=== PATIENT | female | born 1995 | race Two or more races ===

== ENCOUNTER 2024-02-10 12:25 | Emergency (ER) | payer MEDICAID ==
[~2024-02-10 12:25] MED LIST: NITR-87 PO; ZOFR4T PO
[2024-02-10 13:27] LABS: Basophils # (auto) 0 10 ^3/uL (0-0.2); Basophils % (auto) 0.1 % (0.0-2.0); Eosinophils # (auto) 0 10 ^3/uL (0-0.8); Eosinophils % (auto) 0.2 % (0.0-7.0); Hematocrit 34.6 % (36.0-46.0); Hemoglobin 11.9 g/dL (12.2-16.2); Lymphocytes # (auto) 0.6 10 ^3/uL (0.4-5.4); Lymphocytes % (auto) 6.2 % (10.0-50.0); Mean Corpuscular Hgb Conc. 34.6 g/dL (32.0-36.0); Mean Corpuscular Volume 89.7 fL (80.0-100.0); Monocytes # (auto) 0.3 10 ^3/uL (0-1.3); Monocytes % (auto) 3.1 % (0.0-12.0); Neutrophils # (auto) 8.2 10 ^3/uL (1.6-8.6); Neutrophils % (auto) 90.4 % (37.0-80.0); Red Blood Cells 3.85 10^6/uL (4.0-5.20); Red Cell Distribution Width 13.5 % (11.8-14.3); White Blood Cell 9.1 10^3/uL (4.4-10.8)
[2024-02-10 13:43] LABS: Amphetamine Screen, Urine Neg (NEGATIVE)
[2024-02-10 13:44] LABS: Barbiturate Scree,Urine Neg (NEGATIVE); Benzodiazephine Screen, Urine Neg (NEGATIVE); Cannabinoid Screen, Urine Neg (NEGATIVE); Cocaine Screen, Urine Neg (NEGATIVE); Opiate Scree,Urine Neg (NEGATIVE); Phencyclidine Screen, Urine Neg (NEGATIVE); Urine Bacteria FEW /hpf (None Seen); Urine Blood Negative /uL (Negative); Urine Clarity Turbid (Clear); Urine Color Yellow (Yellow); Urine Mucus FEW (None Seen); Urine Protein, UAD TRACE (Negative); Urine Specific Gravity 1.032 (1.001-1.035); Urine Urobilinogen Normal (Negative); Urine WBC 16 /hpf (0 - 5)
[2024-02-10 13:49] LABS: Alanine Aminotransferase 31 U/L (7-40); Albumin 4.1 g/dL (3.2-4.8); Alkaline Phosphatase 87 U/L (46-116); Anion Gap 11 (5-15); Aspartate Aminotransferase 18 U/L (13-40); BUN/Creatinine Ratio 17.9 (10.0-20.0); Blood Urea Nitrogen 10 mg/dL (9-23); Calcium 9.2 mg/dL (8.7-10.4); Carbon Dioxide 19 mmol/L (20-30); Chloride 103 mmol/L (98-107); Glucose 98 mg/dL (74-106); Lipase 44 U/L (12-53); Potassium 4.2 mmol/L (3.5-5.1); Sodium 133 mmol/L (136-145)
[2024-02-10 13:50] LABS: Bilirubin, Total 0.5 mg/dL (0.2-1.0); Total Protein 7.2 g/dL (5.7-8.2)
[2024-02-10 13:54] LABS: INR 0.97 (0.9-1.15); Partial Thromboplastin Time 26.1 SEC (24.5-34.5); Prothrombin Time 10.3 sec (9.3-11.8)
[2024-02-10] MEDS ORDERED: CEPH500T PO (15:40)
[2024-02-10] MEDS ORDERED: ZOFR4T PO (15:40)
[2024-02-10] MEDS: ONDANSETRON HCL 4 MG/2 ML VIAL IV ONE (16:28)
[2024-02-10] MEDS: SODIUM CHLORIDE 0.9% 1,000 ML IVB ONE (16:28)
[2024-02-10 16:29] VITALS: BP 105/69; PULSE 91; RESP 20; TEMP 99; O2SAT 99
== END 2024-02-10 16:30 | disposition home or self-care (01) ==
LOC: ER 12:25
DX: O23.42 Unspecified infection of urinary tract in pregnancy, second trimester (principal); R10.2 Pelvic and perineal pain; N39.0 Urinary tract infection, site not specified; Z3A.21 21 weeks gestation of pregnancy
CPT/HCPCS: 36415; 76805; 80053; 80307; 81001; 83690; 84702; 85025; 85610; 85730

== ENCOUNTER 2024-04-26 07:35 | Observation (INO) | payer MEDICAID ==
[~2024-04-26] VITALS: Ht 157.5 cm; Wt 52.2 kg
[~2024-04-26 07:35] MED LIST changes: +CEPH500T PO
[2024-04-26] MEDS: LACTATED RINGER'S 2,000 ML IV ONE (10:08)
[2024-04-26 11:39] LABS: Rapid Influenza A Negative (Negative); Rapid Influenza B Negative (Negative)
[2024-04-26 11:40] LABS: COVID19 ANTIGEN SOFIA FIA NEGATIVE (NEGATIVE)
[2024-04-26] MEDS ORDERED: PREN-96 PO (12:11)
[2024-04-26] MEDS ORDERED: NITR-87 PO (12:13)
== END 2024-04-26 12:30 | disposition home or self-care (01) ==
LOC: LDRP 07:35
PROVIDERS: ADMIT Obstetrics & Gynecology; ATTEND Obstetrics & Gynecology
DX: O26.893 Other specified pregnancy related conditions, third trimester (principal); Z20.822 Contact with and (suspected) exposure to COVID-19; R51.9 Headache, unspecified; R10.9 Unspecified abdominal pain; Z3A.32 32 weeks gestation of pregnancy
CPT/HCPCS: 36415; 59025; 76805; 76817; 81002; 87426; 87804; 94760; 96360; 96361; G0378

== ENCOUNTER 2024-05-03 12:08 | Observation (INO) | payer MEDICAID ==
[~2024-05-03 12:08] MED LIST changes: +PREN-96 PO
[2024-05-03] MEDS ORDERED: FLUC150T38 PO (14:31)
== END 2024-05-03 13:25 | disposition home or self-care (01) ==
LOC: LDRP 12:08 → UNDOADMOB 12:08 → LDRP 12:21
PROVIDERS: ADMIT Obstetrics & Gynecology; ATTEND Obstetrics & Gynecology
DX: O60.03 Preterm labor without delivery, third trimester (principal); O26.873 Cervical shortening, third trimester; Z3A.33 33 weeks gestation of pregnancy
CPT/HCPCS: 59025; 81002; 94760; G0378

== ENCOUNTER 2024-05-10 10:05 | Observation (INO) | payer MEDICAID ==
[~2024-05-10 10:05] MED LIST changes: +FLUC150T38 PO
== END 2024-05-10 11:32 | disposition home or self-care (01) ==
LOC: UNDOADMOB 10:05 → LDRP 10:05 → UNDODISOB 11:32
PROVIDERS: ADMIT Obstetrics & Gynecology; ATTEND Obstetrics & Gynecology
DX: O60.03 Preterm labor without delivery, third trimester (principal); O26.873 Cervical shortening, third trimester; Z3A.34 34 weeks gestation of pregnancy
CPT/HCPCS: 59025; 81002; 94760; G0378

== ENCOUNTER 2024-05-17 13:00 | Observation (INO) | payer MEDICAID | END 2024-05-17 15:10 | disposition home or self-care (01) | LOC: LDRP 13:00 → UNDOADMOB 13:00 → LDRP 13:42 | PROVIDERS: ADMIT Obstetrics & Gynecology; ATTEND Obstetrics & Gynecology | DX: O26.873 Cervical shortening, third trimester (principal); O62.9 Abnormality of forces of labor, unspecified; Z3A.35 35 weeks gestation of pregnancy | CPT/HCPCS: 59025; 81002; 94760; G0378 ==

== ENCOUNTER 2024-05-24 11:45 | Observation (INO) | payer MEDICAID | END 2024-05-24 14:25 | disposition home or self-care (01) | LOC: LDRP 11:45 → UNDOADMOB 11:45 → LDRP 12:15 | PROVIDERS: ADMIT Obstetrics & Gynecology; ATTEND Obstetrics & Gynecology | DX: O26.873 Cervical shortening, third trimester (principal); Z3A.36 36 weeks gestation of pregnancy | CPT/HCPCS: 59025; 76817; 76818; 81002; 94760; G0378 ==

== ENCOUNTER 2024-06-13 17:23 | Inpatient (IN) | payer MEDICAID ==
[~2024-06-13] VITALS: Ht 157.5 cm; Wt 61.2 kg
[2024-06-13] MEDS ORDERED: BUTORPHANOL TARTRATE 2 MG/1 ML VIAL IV PRN ×2 (20:00)
[2024-06-13] MEDS ORDERED: LIDOCAINE 2%HCL (LOCAL ANESTH.) INJ 20ML MDV IJ PRN (20:00)
[2024-06-13 20:11] LABS: Urine Bacteria None Seen /hpf (None Seen)
[2024-06-13 20:30] LABS: Basophils # (auto) 0 10 ^3/uL (0-0.2); Eosinophils # (auto) 0 10 ^3/uL (0-0.8); Eosinophils % (auto) 0.4 % (0.0-7.0); Hematocrit 27.1 % (36.0-46.0); Monocytes # (auto) 0.6 10 ^3/uL (0-1.3)
[2024-06-13] MEDS: NALOXONE HCL 0.4 MG/ML VIAL IV ONE (20:30)
[2024-06-13] MEDS: ePHEDrine SULFATE 50 MG/ML AMP IV ONE (20:30)
[2024-06-13 20:31] LABS: Urine Blood Negative /uL (Negative); Urine Clarity Clear (Clear); Urine Color Light-Yellow (Yellow); Urine Mucus FEW (None Seen); Urine Protein, UAD Negative (Negative); Urine Specific Gravity 1.014 (1.001-1.035); Urine Urobilinogen Normal (Negative); Urine WBC 1 /hpf (0 - 5)
[2024-06-13 20:33] LABS: Basophils % (auto) 0.1 % (0.0-2.0); Hemoglobin 8.5 g/dL (12.2-16.2); Lymphocytes # (auto) 1.6 10 ^3/uL (0.4-5.4); Lymphocytes % (auto) 13.4 % (10.0-50.0); Mean Corpuscular Hemoglobin 23.7 pg (28.0-32.0); Mean Corpuscular Hgb Conc. 31.4 g/dL (32.0-36.0); Mean Corpuscular Volume 75.6 fL (80.0-100.0); Monocytes % (auto) 4.9 % (0.0-12.0); Neutrophils # (auto) 9.9 10 ^3/uL (1.6-8.6); Neutrophils % (auto) 81.2 % (37.0-80.0); Nucleated Red Blood Cells % 0.2 %; Platelet Count (auto) 325 10^3/uL (140-450); Red Blood Cells 3.59 10^6/uL (4.0-5.20); Red Cell Distribution Width 17.9 % (11.8-14.3); White Blood Cell 12.3 10^3/uL (4.4-10.8)
[2024-06-13 20:50] LABS: INR 0.93 (0.9-1.15); Prothrombin Time 9.9 sec (9.3-11.8)
[2024-06-13 20:51] LABS: Amphetamine Screen, Urine Neg (NEGATIVE)
[2024-06-13 20:52] LABS: Barbiturate Scree,Urine Neg (NEGATIVE); Benzodiazephine Screen, Urine Neg (NEGATIVE); Cannabinoid Screen, Urine Neg (NEGATIVE); Cocaine Screen, Urine Neg (NEGATIVE); Opiate Scree,Urine Neg (NEGATIVE); Phencyclidine Screen, Urine Neg (NEGATIVE)
[2024-06-13 20:53] LABS: Alanine Aminotransferase 11 U/L (7-40); Alkaline Phosphatase 166 U/L (46-116); Anion Gap 11 (5-15); BUN/Creatinine Ratio 11.3 (10.0-20.0); Blood Urea Nitrogen 7 mg/dL (9-23); Calcium 9.1 mg/dL (8.7-10.4); Carbon Dioxide 17 mmol/L (20-31); Chloride 103 mmol/L (98-107); Glucose 87 mg/dL (74-106); Potassium 3.7 mmol/L (3.5-5.1); Sodium 131 mmol/L (136-145)
[2024-06-13 20:54] LABS: Albumin 3.9 g/dL (3.2-4.8); Aspartate Aminotransferase 14 U/L (13-40)
[2024-06-13 20:55] LABS: Bilirubin, Total 0.3 mg/dL (0.2-1.0)
[2024-06-13] MEDS: LIDOCAINE HCL 2 %PF INJ 10ML AMP IJ ONE ×2 (21:14→22:22)
[2024-06-13] MEDS: LACTATED RINGER'S 1,000 ML IV ONE (21:17)
[2024-06-13] MEDS: LACTATED RINGER'S 1,000 ML IV SCH (21:17)
[2024-06-13] MEDS: ROPIVACAINE HCL 200 ML ONE (21:52)
[2024-06-13] MEDS: fentaNYL CITRATE 100 MCG/2 ML VL ONE (21:54)
[2024-06-13] MEDS: ePHEDrine SULFATE 50 MG/ML AMP ONE (22:22)
[2024-06-13] MEDS: fentaNYL CITRATE 100 MCG/2 ML VL IV ONE (22:22)
[2024-06-13] MEDS: PHISODERM TOP SOLN 240ML BTL TOP PRN (22:23)
[2024-06-13] MEDS: DERMOPLAST 60ML BOTTLE TOP PRN (22:23)
[2024-06-13] MEDS: WITCH HAZEL-GLYCERIN PAD TOP PRN (22:23)
[2024-06-14] MEDS: LACT. RINGERS/OXYTOCIN 20UNITS 1,000 ML IV SCH (01:07)
[2024-06-14] MEDS: METHYLERGONOVINE MALEATE 0.2 MG/ML AMP IM ONE (06:54)
[2024-06-14] MEDS: LACT. RINGERS/OXYTOCIN 20UNITS 500 ML IV ONE ×2 (07:50→07:51)
[2024-06-14] MEDS: METHYLERGONOVINE MALEATE 0.2 MG/ML AMP IM PRN (07:52)
[2024-06-14] MEDS: miSOPROStol 100 mcg TAB PR PRN (07:53)
[2024-06-14] MEDS ORDERED: ONDANSETRON ODT 4 MG TAB PO PRN (08:45)
[2024-06-14] MEDS: IBUPROFEN 600 MG TAB PO PRN (10:46)
[2024-06-14] MEDS: ceFAZolin 1GM/50ML 50 ML IV SCH (14:07)
[2024-06-14] MEDS: ACETAMINOPHEN 325 MG TAB PO PRN (14:15)
[2024-06-14 15:00] VITALS: BP 106/64; PULSE 85; RESP 20; TEMP 98.9; O2SAT 98
[2024-06-14 19:00] VITALS: BP 103/61; PULSE 90; RESP 18; TEMP 99; O2SAT 99
[2024-06-14] MEDS: DOCUSATE SOD 100 MG CAP PO SCH (22:00)
[2024-06-14 23:00] VITALS: BP 112/73; PULSE 80; RESP 16; TEMP 98.6; O2SAT 99
[2024-06-15 03:00] VITALS: BP 110/69; PULSE 84; RESP 18; TEMP 98.9; O2SAT 99
[2024-06-15 06:30] VITALS: BP 104/73; PULSE 81; RESP 18; TEMP 98.7; O2SAT 97
[2024-06-15 07:07] LABS: RPR Non Reactive (Non Reactive)
[2024-06-15 11:30] VITALS: BP 106/74; PULSE 79; RESP 18; TEMP 98.6; O2SAT 97
== END 2024-06-15 15:01 | disposition home or self-care (01) | DRG 560 ==
LOC: LDRP 17:23 → UNDOADMOB 17:23 → OBSVTOIN 19:39 → INTOOBSV 19:39 → OBSVTOIN 20:29 → LDRP 20:29
PROVIDERS: ADMIT Obstetrics & Gynecology; ATTEND Obstetrics & Gynecology
PROC: 10D07Z6 Extraction of Products of Conception, Vacuum, Via Natural or Artificial Opening (ICD-10-PCS; principal; 2024-06-14)
PROC: 3E033VJ Introduction of Other Hormone into Peripheral Vein, Percutaneous Approach (ICD-10-PCS; 2024-06-14)
PROC: 0W8NXZZ Division of Female Perineum, External Approach (ICD-10-PCS; 2024-06-14)
PROC: 0KQM0ZZ Repair Perineum Muscle, Open Approach (ICD-10-PCS; 2024-06-14)
PROC: 3E0R3BZ Introduction of Anesthetic Agent into Spinal Canal, Percutaneous Approach (ICD-10-PCS; 2024-06-14)
PROC: 00HU33Z Insertion of Infusion Device into Spinal Canal, Percutaneous Approach (ICD-10-PCS; 2024-06-14)
DX: O70.1 Second degree perineal laceration during delivery (principal); Z37.0 Single live birth; Z3A.39 39 weeks gestation of pregnancy
CPT/HCPCS: 36415; 59025; 59409; 62282; 80053; 80307; 81001; 81002; 82948; 85025; 85610; 85730; 86592; 86850; 86900; 86901; 94760; 96360; 96361; 96365; 96366; 96372; G0378; J2590

== ENCOUNTER 2024-07-01 18:16 | Emergency (ER) | payer MEDICAID ==
[~2024-07-01] VITALS: Ht 157.5 cm; Wt 57.3 kg
[~2024-07-01 18:16] MED LIST changes: -CEPH500T PO; -FLUC150T38 PO; -NITR-87 PO; -ZOFR4T PO
[2024-07-01] MEDS: SODIUM CHLORIDE 0.9% 1,000 ML IV ONE (18:30)
[2024-07-01] MEDS: LORazepam 2MG/ML-1ML VIAL IV ONE (18:30)
[2024-07-01] MEDS: ONDANSETRON HCL 4 MG/2 ML VIAL IV ONE (18:30)
[2024-07-01] MEDS: FAMOTIDINE (10MG/ML) 2ML VL IV ONE (18:30)
[2024-07-01 18:49] LABS: Monocytes # (auto) 0.5 10 ^3/uL (0-1.3); Platelet Count (auto) 575 10^3/uL (140-450)
[2024-07-01 18:51] LABS: Basophils # (auto) 0.1 10 ^3/uL (0-0.2); Basophils % (auto) 0.6 % (0.0-2.0); Eosinophils # (auto) 0.3 10 ^3/uL (0-0.8); Eosinophils % (auto) 4.2 % (0.0-7.0); Hematocrit 29.2 % (36.0-46.0); Hemoglobin 9.5 g/dL (12.2-16.2); Lymphocytes # (auto) 2.3 10 ^3/uL (0.4-5.4); Lymphocytes % (auto) 27.5 % (10.0-50.0); Mean Corpuscular Hgb Conc. 32.5 g/dL (32.0-36.0); Monocytes % (auto) 5.6 % (0.0-12.0); Neutrophils # (auto) 5.2 10 ^3/uL (1.6-8.6); Neutrophils % (auto) 62.1 % (37.0-80.0); Nucleated Red Blood Cells % 0.2 %; Red Blood Cells 3.94 10^6/uL (4.0-5.20); Red Cell Distribution Width 18.8 % (11.8-14.3); White Blood Cell 8.3 10^3/uL (4.4-10.8)
[2024-07-01 18:59] LABS: Chloride 106 mmol/L (98-107); Potassium 3.3 mmol/L (3.5-5.1); Sodium 139 mmol/L (136-145)
[2024-07-01 19:00] LABS: Anion Gap 11 (5-15); Carbon Dioxide 22 mmol/L (20-31)
[2024-07-01 19:01] LABS: Calcium 9.3 mg/dL (8.7-10.4)
[2024-07-01 19:05] LABS: Glucose 108 mg/dL (74-106)
[2024-07-01 19:06] LABS: BUN/Creatinine Ratio 10.8 (10.0-20.0); Blood Urea Nitrogen 9 mg/dL (9-23); Lipase 53 U/L (12-53)
[2024-07-01 19:20] LABS: Urine Bacteria FEW /hpf (None Seen); Urine Blood 3+ /uL (Negative); Urine Clarity Turbid (Clear); Urine Color Yellow (Yellow); Urine Mucus FEW (None Seen); Urine Protein, UAD TRACE (Negative); Urine Specific Gravity 1.024 (1.001-1.035); Urine Urobilinogen 3 mg/dL (Negative); Urine WBC 93 /hpf (0 - 5); Urine pH 6.5 (5.0-9.0)
[2024-07-01 20:14] VITALS: BP 118/66; RESP 16; TEMP 98.7; O2SAT 98
[2024-07-01] MEDS: cefTRIAXone 1GM/50ML D5W 50 ML IV ONE (21:00)
[2024-07-01] MEDS: cefTRIAXone SOD 1,000 MG VL IM ONE (21:58)
[2024-07-01 22:09] VITALS: PULSE 113
[2024-07-01] MEDS ORDERED: CEFD300C2 PO (22:09)
== END 2024-07-01 22:22 | disposition home or self-care (01) ==
LOC: ER 18:16
DX: O86.20 Urinary tract infection following delivery, unspecified (principal); O90.89 Other complications of the puerperium, not elsewhere classified; R07.89 Other chest pain; Z79.899 Other long term (current) drug therapy
CPT/HCPCS: 36415; 71046; 80048; 81001; 83690; 84484; 85025; 93005; 96361; 96372; 96374; 96375; 99285; J0696; J2060; J2405; J3490; J7030

== ENCOUNTER 2025-01-16 12:47 | Emergency (ER) | payer MEDICAID ==
[~2025-01-16] VITALS: Ht 160 cm; Wt 60.6 kg
[~2025-01-16 12:47] MED LIST changes: +CEFD300C2 PO
--- NOTE | 2025-01-16 13:36 | ED.PDOC ---
General HPI Comments 29 y/o F, with PMHx of UTI's presents to the ED for CC of flank pain. Patient states, she has been experiencing bilateral flank pain that radiates to her back and abdomen x3days. Patient relays, symptoms to intensify when walking causing shortness of breath with associated chest pain. Patient complains of current 8/10 pain. Patient denies dysuria, vaginal discharge, increased frequency or fever. No other symptoms or modifying factors present at this time. Chief Complaint: Flank Pain Time Seen by MD: 13:15 Primary Care Provider: UNKNOWN Reviewed notes: Nurses Notes, Medications, Allergies Allergies: Coded Allergies: NO KNOWN ALLERGIES (Unverified , 10/13/10) Home Meds Active Scripts Ciprofloxacin Hcl (Cipro) 500 Mg Tab, 1 TAB PO BID, #14 TAB Prov:JULIANNE GREENE MD 01/16/25 Cefdinir (Cefdinir) 300 Mg Cap, 1 CAP PO BID for 5 Days, #14 CAP Prov:MEME GARCIA MD 07/01/24 Reported Medications Vit W/ Ferrous Fumara ( One Daily) Daily Tab, 1 TAB PO DAILY, #90 TAB 3 Refills 04/26/24 Information Source: Patient Mode of Arrival: Ambulatory Severity: Moderate Timing: Days Duration: Since onset Prehospital treatment: None Onset: Spontaneous Symptoms: None History of: UTI Location: (R) Flank, (L)Flank Modifying factors: None associated signs and symptoms: Abdominal Pain, Nausea, Vomiting, Flank Pain, Back Pain Past Medical History PAST MEDICAL HISTORY: Denies Surgical History: Denies all surgeries EXPERT MEDICAL WRITER History: No Pertinent EXPERT MEDICAL WRITER History Family History Family History: Family hx of DM, Family hx of Cancer Social History Smoker: Non-Smoker Alcohol: Occasionally Drugs: Denies Drug Use Lives In: Home Constitutional: denies: chills, diaphoresis, fatigue, fever, malaise, sweats, weakness, others EENTM: denies: blurred vision, double vision, ear bleeding, ear discharge, ear drainage, ear pain, ear ringing, eye pain, eye redness, hearing loss, mouth pain, mouth swelling, nasal discharge, nose bleeding, nose congestion, nose pain, photophobia, tearing, throat pain, throat swelling, voice changes, others Respiratory: denies: cough, hemoptysis, orthopnea, SOB at rest, shortness of breath, SOB with excertion, stridor, wheezing, others Cardiovascular: reports: chest pain; denies: dizzy spells, diaphoresis, Dyspnea on exertion, edema, irregular heart beat, left arm pain, lightheadedness, palpitations, PND, syncope, others Gastrointestinal: reports: abdominal pain, nausea, vomiting; denies: abdomen distended, blood streaked bowels, constipated, diarrhea, dysphagia, difficulty swallowing, hematemesis, melena, poor appetite, poor fluid intake, rectal bleeding, rectal pain, others Genitourinary: reports: flank pain; denies: abnormal vagina bleeding, burning, dyspareunia, dysuria, frequency, hematuria, incontinence, pain, , vagina discharge, urgency, others Neurological: denies: dizziness, fainting, headache, left sided numbness, left sided weakness, numbness, paresthesia, pre-existing deficit, right sided numbness, right sided weakness, seizure, speech problems, tingling, tremors, weakness, others Musculoskeletal: reports: back pain; denies: gout, joint pain, joint swelling, muscle pain, muscle stiffness, neck pain, others Integumetry: denies: bruises, change in color, change in hair/nails, dryness, laceration, lesions, lumps, rash, wounds, others Allergic/Immunocompromised: denies: Difficulty Healing, Frequent Infections, Hives, Itching, others Hematologic/Lymphatic: denies: anemia, blood clots, easy bleeding, easy bruising, swollen glands, others Endocrine: denies: excessive hunger, excessive sweating, excessive thirst, excessive urination, flushing, intolerance to cold, intolerance to heat, unexplained weight gain, unexplained weight loss, others Psychiatric: denies: anxiety, bipolar disorder, depression, hopeless, panic disorder, schizophrenia, sleepless, suicidal, others All Other Systems: Reviewed and Negative Physical Exam General Appearance: Mild Distress HEENT: Normal ENT Inspection, Pharynx Normal, TMs Normal Neck: Full Range of Motion, Non-Tender, Normal, Normal Inspection Respiratory: Chest Non-Tender, Lungs Clear, No Accessory Muscle Use, No Respiratory Distress, Normal Breath Sounds Cardiovascular: No Edema, No JVD, No Murmur, No Gallop, Normal Peripheral Pulses, Regular Rate/Rhythm Breast Exam: Deferred Gastrointestinal: No Organomegaly, No Pulsatile Mass, Normal Bowel Sounds, Soft, Suprapubic, Tenderness Genitalia: Deferred Pelvic: Deferred Rectal: Deferred Extremities: No calf tenderness, Normal capillary refill, Normal inspection, Normal range of motion, Non-tender, No pedal edema Musculoskeletal : Apperance: Normal Neurologic: Alert, ski binding fitter and repairer II-XII nml as Tested, No Motor Deficits, Normal Affect, Normal Mood, No Sensory Deficits Cerebellar Function: Normal Reflexes: Normal Skin: Dry, Normal Color, Warm Lymphatic: No Adenopathy Was a procedure done? Was a procedure done?: No Differential Diagnosis Kidney stone (Female): Cholelithiasis, Urinary obstruction, Urolithiasis Urinary Problem (Female): UTI X-Ray, Labs, Meds, VS Vital Signs Date Time Temp Pulse Resp B/P (MAP) Pulse Ox O2 Delivery O2 Flow Rate FiO2 01/16/25 13:08 99.0 85 16 117/71 (86) 100 99.0 Lab Test 01/16/25 14:54 01/16/25 14:53 01/16/25 13:45 Range/Units Urine Test Negative Negative Urine Color Light-yellow Yellow Urine Clarity Turbid H Clear Urine pH 6.0 5.0-9.0 Urine Specific [place] 1.016 1.001-1.035 Urine Protein Trace H Negative Urine Ketones Negative Negative Urine Blood 3+ H Negative /uL Urine Nitrite Negative Negative Urine Bilirubin Negative Negative Urine Urobilinogen Normal Negative mg/dL Urine Leukocyte Esterase 3+ Negative /uL Urine RBC 8 0 - 4 /hpf Urine Microscopic WBC 35 H 0-5 /HPF Urine Squamous Epithelial Cells Mod <5 /hpf Urine Amorphous Crystals Few None Seen /hpf Urine Bacteria Few H None Seen /hpf Urine Mucus Few None Seen Urine Glucose Normal Normal mg/dL White Blood Count 4.8 4.4-10.8 10^3/uL Red Blood Count 4.52 4.0-5.20 10^6/uL Hemoglobin 9.4 L 12.2-16.2 g/dL Hematocrit 30.4 L 36.0-46.0 % Mean Corpuscular Volume 67.1 L 80.0-100.0 fL Mean Corpuscular Hemoglobin 20.8 L 28.0-32.0 pg Mean Corpuscular Hemoglobin Concent 30.9 L 32.0-36.0 g/dL Red Cell Distribution Width 19.9 H 11.8-14.3 % Platelet Count 489 H 140-450 10^3/uL Mean Platelet Volume 8.0 6.9-10.8 fL Neutrophils (%) (Auto) 59.0 37.0-80.0 % Lymphocytes (%) (Auto) 33.6 10.0-50.0 % Monocytes (%) (Auto) 4.8 0.0-12.0 % Eosinophils (%) (Auto) 2.4 0.0-7.0 % Basophils (%) (Auto) 0.2 0.0-2.0 % Neutrophils # (Auto) 2.8 1.6-8.6 10 ^3/uL Lymphocytes # (Auto) 1.6 0.4-5.4 10 ^3/uL Monocytes # (Auto) 0.2 0-1.3 10 ^3/uL Eosinophils # (Auto) 0.1 0-0.8 10 ^3/uL Basophils # (Auto) 0 0-0.2 10 ^3/uL Nucleated Red Blood Cells 0.3 % Sodium Level 135 L 136-145 mmol/L Potassium Level 3.4 L 3.5-5.1 mmol/L Chloride Level 105 98-107 mmol/L Carbon Dioxide Level 19 L 20-31 mmol/L Anion Gap 11 5-15 Blood Urea Nitrogen 8 L 9-23 mg/dL Creatinine 0.71 0.550-1.02 mg/dL Glomerular Filtration Rate Calc 118 >90 mL/min BUN/Creatinine Ratio 11.3 10.0-20.0 Serum Glucose 92 74-106 mg/dL Calcium Level 8.9 8.7-10.4 mg/dL Total Bilirubin 0.4 0.2-1.0 mg/dL Aspartate Amino Transferase (AST) 13 13-40 U/L Alanine Aminotransferase (ALT) 17 7-40 U/L Alkaline Phosphatase 83 46-116 U/L Total Protein 8.1 5.7-8.2 g/dL Albumin 5.1 H 3.2-4.8 g/dL Lipase 70 H 12-53 U/L GALLBLADDER US: IMPRESSION: No sonographic evidence of gallstones or acute cholecystitis. Mild hepatic steatosis. At this time the patient's CBC shows anemia with a hemoglobin of 9.4 and hematocrit of 30.4 The platelets are 489 The chemistry panel is within normal limits The lipase is 70 The urine test is positive for UTI At this time, the patient will be discharged with a prescription of Cipro The patient will return to the emergency department's condition worsens. The patient understands and agrees with the management. Time of 1ST Reevaluation: 13:45 Reevaluation 1ST: Unchanged Time of 2ND Reevaluation: 16:46 Reevaluation 2ND: Improved Patient Education/Counseling: Diagnosis, Treatment, Prognosis, Need For Follow Up Family Education/Counseling: No Family Present Departure 1 Departure Time of Disposition: 16:46 Impression: Primary Impression: Urinary tract infection Qualified Codes: N30.00 - Acute cystitis without hematuria Additional Impression: Abdominal pain Qualified Codes: R10.9 - Unspecified abdominal pain Disposition: 01 HOME / SELF CARE / HOMELESS Condition: Fair e-Prescriptions Ciprofloxacin Hcl (Cipro) 500 Mg Tab 1 TAB PO BID, #14 TAB Prov: JULIANNE GREENE MD 01/16/25 Discharged With: Self Critical Care Note Critical Care Time?: No Stability Stability form required: No Heart Score Heart Score: Heart Score Response (Comments) Value History N/A 0 EKG N/A 0 Age N/A 0 Risk Factors N/A 0 Troponin N/A 0 Total 0 I personally scribed for JULIANNE GREENE MD ([email or web address]) on 01/16/25 at 13:36. Electronically submitted by Nani Shah ([email or web address]). I personally scribed for JULIANNE GREENE MD ([email or web address]) on 01/16/25 at 14:32. Electronically submitted by Nani Shah ([email or web address]). JULIANNE GREENE MD January 16, 2025 13:36
[2025-01-16] MEDS: PROCHLORPERAZINE EDISYLATE 5 MG/ML 2ML VIAL IV ONE (13:45)
[2025-01-16] MEDS: PANTOPRAZOLE 40 MG/10 ML VIAL INJ IV ONE (13:45)
[2025-01-16] MEDS: SODIUM CHLORIDE 0.9% 1,000 ML IVB ONE (13:45)
[2025-01-16] MEDS: MORPHINE SULFATE 4 MG/ML SYR/VIAL IV ONE (13:45)
[2025-01-16 13:58] LABS: Basophils # (auto) 0 10 ^3/uL (0-0.2); Eosinophils # (auto) 0.1 10 ^3/uL (0-0.8); Lymphocytes # (auto) 1.6 10 ^3/uL (0.4-5.4); Mean Corpuscular Hgb Conc. 30.9 g/dL (32.0-36.0); Monocytes # (auto) 0.2 10 ^3/uL (0-1.3); Neutrophils # (auto) 2.8 10 ^3/uL (1.6-8.6); Nucleated Red Blood Cells % 0.3 %
[2025-01-16 13:59] LABS: Basophils % (auto) 0.2 % (0.0-2.0); Eosinophils % (auto) 2.4 % (0.0-7.0); Hematocrit 30.4 % (36.0-46.0); Hemoglobin 9.4 g/dL (12.2-16.2); Lymphocytes % (auto) 33.6 % (10.0-50.0); Mean Corpuscular Hemoglobin 20.8 pg (28.0-32.0); Mean Corpuscular Volume 67.1 fL (80.0-100.0); Monocytes % (auto) 4.8 % (0.0-12.0); Platelet Count (auto) 489 10^3/uL (140-450); Red Blood Cells 4.52 10^6/uL (4.0-5.20); Red Cell Distribution Width 19.9 % (11.8-14.3); White Blood Cell 4.8 10^3/uL (4.4-10.8)
[2025-01-16 14:20] LABS: Alanine Aminotransferase 17 U/L (7-40); Alkaline Phosphatase 83 U/L (46-116); Anion Gap 11 (5-15); Aspartate Aminotransferase 13 U/L (13-40); BUN/Creatinine Ratio 11.3 (10.0-20.0); Calcium 8.9 mg/dL (8.7-10.4); Chloride 105 mmol/L (98-107); Glucose 92 mg/dL (74-106); Total Protein 8.1 g/dL (5.7-8.2)
[2025-01-16 14:21] LABS: Bilirubin, Total 0.4 mg/dL (0.2-1.0)
[2025-01-16 14:22] LABS: Albumin 5.1 g/dL (3.2-4.8); Blood Urea Nitrogen 8 mg/dL (9-23); Carbon Dioxide 19 mmol/L (20-31); Lipase 70 U/L (12-53); Potassium 3.4 mmol/L (3.5-5.1); Sodium 135 mmol/L (136-145)
--- NOTE | 2025-01-16 14:27 | DVH ---
INDICATION: pain TECHNIQUE: Multiple real-time sonographic images were obtained of the right upper quadrant. COMPARISON: None FINDINGS: The liver demonstrates increased echotexture without focal mass lesions. The liver measures 14 cm. There is no intrahepatic or extrahepatic ductal dilatation. The common duct measures 5 mm. The gallbladder is without evidence of stone or sludge. The gallbladder wall measures 1 mm and is wi thin normal limits. The right kidney measures 9.4 cm. The right kidney is normal in contour, size, and shape. The echoge nicity is normal. There is no hydronephrosis. The pancreas is not well visualized due to overlying bowel gas. IMPRESSION: No sonographic evidence of gallstones or acute cholecystitis. Mild hepatic steatosis.
[2025-01-16 15:11] LABS: Urine Amorphous Crystal FEW /hpf (None Seen); Urine Bacteria FEW /hpf (None Seen); Urine Blood 3+ /uL (Negative); Urine Clarity Turbid (Clear); Urine Color Light-Yellow (Yellow); Urine Mucus FEW (None Seen); Urine Protein, UAD TRACE (Negative); Urine Specific Gravity 1.016 (1.001-1.035); Urine Squamous Epithelial Cell MOD /hpf (<5); Urine Urobilinogen Normal (Negative); Urine WBC 35 /HPF (0-5)
[2025-01-16] MEDS ORDERED: CIPR-173 PO (16:45)
[2025-01-16 18:15] VITALS: BP 112/75; PULSE 90; RESP 16; TEMP 98.9; O2SAT 100
[2025-01-17] MEDS ORDERED: ACET-1304 PO (14:58)
[2025-01-17] MEDS ORDERED: HYDR50TA32 PO (14:58)
[2025-01-17] MEDS ORDERED: ZOFR4T PO (14:58)
[2025-01-17] MEDS ORDERED: CEPH500C PO (14:58)
== END 2025-01-16 18:53 | disposition home or self-care (01) ==
LOC: ER 12:53
DX: N39.0 Urinary tract infection, site not specified (principal); R10.84 Generalized abdominal pain
CPT/HCPCS: 36415; 76705; 80053; 81001; 81025; 83690; 85025; 86850; 86900; 86901

== ENCOUNTER 2025-01-17 11:44 | Emergency (ER) | payer MEDICAID ==
[~2025-01-17] VITALS: Ht 160 cm; Wt 61.1 kg
[~2025-01-17 11:44] MED LIST changes: +CIPR-173 PO
[2025-01-17] MEDS ORDERED: ZOFR4T PO (14:58)
[2025-01-17] MEDS ORDERED: CEPH500C PO (14:58)
[2025-01-17] MEDS ORDERED: ACET-1304 PO (14:58)
[2025-01-17] MEDS ORDERED: HYDR50TA32 PO (14:58)
--- NOTE | 2025-01-17 15:05 | ED.PDOC ---
History of Present Illness HPI Comments 29y F who presents to the ED for chief complaint of panic attack. Pt states she was recently dx with UTI and prescribed Ciprofloxacin. Pt states she took the medication today AM and afterwards ate breakfast. Pt states while showering this AM, she started to get lower back pain, shortness of breath and lightheadedness. Pt states she has history of panic attack and felt associated symptoms of panic attack during this episode. Pt states she told her mother and states she continued to feel anxious this AM and came to the ED for further evaluation after she started to get associated nausea. Pt now in the ED, states she is feeling anxious but otherwise denies any other symptoms. Pt has noted stable vitals with temp of 97.7 F, heart rate of 99, rr 18 and BP of 116/81 with 02 sat of 96% on room air. Pt otherwise denies any associated symptoms at this time. Chief Complaint: Anxiety Time Seen by MD: 15:02 Primary Care Provider: UNKNOWN Reviewed Notes: Medications, Allergies Allergies: Coded Allergies: NO KNOWN ALLERGIES (Unverified , 10/13/10) Home Meds Active Scripts Acetaminophen (Tylenol Extra Strength) 500 Mg Tab, 1000 MG PO Q6HP PRN, #30 TAB prn pain Prov:GISELE KLEIN MD 01/17/25 Hydroxyzine HCl (Hydroxyzine Hydrochloride) 50 Mg Tab, 50 MG PO Q6HP PRN, #30 TAB prn anxiety Prov:GISELE KLEIN MD 01/17/25 Ondansetron Odt 4MG Tab (ZOFRAN PO) 4 Mg Tb, 4 MG PO TID PRN, #30 TAB prn nausea/vomiting ODT TAB-DISSOLVE IN MOUTH, THEN SWALLOW Prov:GISELE KLEIN MD 01/17/25 Cephalexin Monohydrate (Cephalexin) 500 Mg Cap, 1 CAP PO QID for 10 Days, #40 CAP Prov:GISELE KLEIN MD 01/17/25 Ciprofloxacin Hcl (Cipro) 500 Mg Tab, 1 TAB PO BID, #14 TAB Prov:JULIANNE GREENE MD 01/16/25 Cefdinir (Cefdinir) 300 Mg Cap, 1 CAP PO BID for 5 Days, #14 CAP Prov:MEME GARCIA MD 07/01/24 Reported Medications Vit W/ Ferrous Fumara ( One Daily) Daily Tab, 1 TAB PO DAILY, #90 TAB 3 Refills 04/26/24 Information Source: Patient Mode of Arrival: Ambulatory Past Medical History Past Medical History (Other): panic attacks Surgical History: Denies all surgeries SHIP SURVEYOR History: No Pertinent SHIP SURVEYOR History Family History Family History: Family hx of DM, Family hx of Cancer Social History Smoker: Non-Smoker Alcohol: Occasionally Drugs: Denies Drug Use Lives In: Home Constitutional: reports: malaise, weakness; denies: chills, diaphoresis, fatigu e, fever, sweats, others EENTM: denies: blurred vision, double vision, ear bleeding, ear discharge, ear drainage, ear pain, ear ringing, eye pain, eye redness, hearing loss, mouth pain, mouth swelling, nasal discharge, nose bleeding, nose congestion, nose pain, photophobia, tearing, throat pain, throat swelling, voice changes, others Respiratory: denies: cough, hemoptysis, orthopnea, SOB at rest, shortness of breath, SOB with excertion, stridor, wheezing, others Cardiovascular: denies: chest pain, dizzy spells, diaphoresis, Dyspnea on exertion, edema, irregular heart beat, left arm pain, lightheadedness, palpitations, PND, syncope, others Gastrointestinal: denies: abdomen distended, abdominal pain, blood streaked bowels, constipated, diarrhea, dysphagia, difficulty swallowing, hematemesis, melena, nausea, poor appetite, poor fluid intake, rectal bleeding, rectal pain, vomiting, others Genitourinary: denies: abnormal vagina bleeding, burning, dyspareunia, dysuria, flank pain, frequency, hematuria, incontinence, pain, , vagina discharge, urgency, others Neurological: reports: dizziness; denies: fainting, headache, left sided numbness, left sided weakness, numbness, paresthesia, pre-existing deficit, right sided numbness, right sided weakness, seizure, speech problems, tingling, tremors, weakness, others Musculoskeletal: reports: back pain; denies: gout, joint pain, joint swelling, muscle pain, muscle stiffness, neck pain, others Integumetry: denies: bruises, change in color, change in hair/nails, dryness, laceration, lesions, lumps, rash, wounds, others Allergic/Immunocompromised: denies: Difficulty Healing, Frequent Infections, Hives, Itching, others Hematologic/Lymphatic: denies: anemia, blood clots, easy bleeding, easy bruising, swollen glands, others Endocrine: denies: excessive hunger, excessive sweating, excessive thirst, excessive urination, flushing, intolerance to cold, intolerance to heat, unexplained weight gain, unexplained weight loss, others Psychiatric: reports: anxiety; denies: bipolar disorder, depression, hopeless, panic disorder, schizophrenia, sleepless, suicidal, others All Other Systems: Reviewed and Negative Physical Exam General Appearance: Mild Distress, Obese HEENT: Other (Pupils and face symmetric. Moist mucous membranes.) Neck: Full Range of Motion, Normal Inspection Respiratory: Lungs Clear, No Accessory Muscle Use, No Respiratory Distress, Normal Breath Sounds Cardiovascular: No Edema, No JVD, Tachycardia Breast Exam: Deferred Gastrointestinal: Non Tender, Soft Genitalia: Deferred Pelvic: Deferred Rectal: Deferred Extremities: Normal inspection, Normal range of motion, Non-tender, No pedal edema Neurologic: Alert (Oriented x4), Normal Affect, Other (Anxious. Ambulatory.) Cerebellar Function: NOT DONE Reflexes: NOT DONE Skin: Dry, Normal Color, Warm Lymphatic: NOT DONE Was a procedure done? Was a procedure done?: No EKG EKG : Comments Sinus tach, rate 109, normal intervals, normal axis, normal QRS, no ST/T change. Differential Dx Considerations may include: panic attack, medication side effect, anxiety, UTI, among others X-Ray, Labs, Meds, VS Vital Signs Date Time Temp Pulse Resp B/P (MAP) Pulse Ox O2 Delivery O2 Flow Rate FiO2 01/17/25 13:41 97.7 99 18 116/81 (93) 96 97.7 01/17/25 12:07 109 01/17/25 11:50 99.1 111 20 159/76 (103) 100 99.1 01/17/25 11:50 Room Air* 0 21 X-Ray, Labs, Meds, VS Comment 29-year-old female with a history of anxiety and current UTI complaining of anxiety after taking Cipro Vitals remarkable for heart rate 111, BP 159/76 Exam remarkable for anxiety and tachycardia Rhythm strip independently interpreted by me: Sinus tach, rate 109, no ectopy. Patient treated with the following in the ED: Ativan 1 mg p.o., Zofran ODT 4 mg p.o., ibuprofen 800 mg p.o. On re-evaluation, patient states her low back pain has improved, she no longer feels anxious. Tachycardia has resolved and other vitals were stable. Patient appears stable for discharge with close outpatient follow-up with her primary physician. Patient advised to discontinue Cipro. Rx Keflex, Zofran, hydroxyzine Time of 1ST Reevaluation: 15:35 Reevaluation 1ST: Unchanged Time of 2ND Reevaluation: 15:33 Reevaluation 2ND: Improved Patient Education/Counseling: Diagnosis, Treatment Family Education/Counseling: No Family Present Departure 1 Departure Time of Disposition: 15:33 Impression: Primary Impression: Anxiety Additional Impression: UTI (urinary tract infection) Qualified Codes: N39.0 - Urinary tract infection, site not specified Disposition: HOME / SELF CARE / HOMELESS Condition: Stable Additional Instructions: Discontinue Cipro. I have prescribed medication for anxiety, a new antibiotic, and medication for nausea or vomiting. Follow-up with your primary doctor in 1- 2 days. Return to ER for persistent or worsening symptoms. e-Prescriptions Acetaminophen (Tylenol Extra Strength) 500 Mg Tab 1000 MG PO Q6HP PRN, #30 TAB prn pain Prov: GISELE KLEIN MD 01/17/25 Hydroxyzine HCl (Hydroxyzine Hydrochloride) 50 Mg Tab 50 MG PO Q6HP PRN, #30 TAB prn anxiety Prov: GISELE KLEIN MD 01/17/25 Ondansetron Odt 4MG Tab (ZOFRAN PO) 4 Mg Tb 4 MG PO TID PRN, #30 TAB prn nausea/vomiting ODT TAB-DISSOLVE IN MOUTH, THEN SWALLOW Prov: GISELE KLEIN MD 01/17/25 Cephalexin Monohydrate (Cephalexin) 500 Mg Cap 1 CAP PO QID for 10 Days, #40 CAP Prov: GISELE KLEIN MD 01/17/25 Discharged With: Relative Critical Care Note Critical Care Time?: No Stability Stability form required: No Heart Score Heart Score: Heart Score Response (Comments) Value History N/A 0 EKG N/A 0 Age N/A 0 Risk Factors N/A 0 Troponin N/A 0 Total 0 I personally scribed for GISELE KLEIN MD ([email or web address]) on 01/17/25 at 15: 05. Electronically submitted by Mynor Goetz ([email or web address]). GISELE KLEIN MD January 17, 2025 15:05
[2025-01-17] MEDS: LORazepam 0.5 MG TAB PO ONE (16:52)
[2025-01-17] MEDS: IBUPROFEN 800 MG TAB PO ONE (16:53)
[2025-01-17] MEDS: ONDANSETRON ODT 4 MG TAB PO ONE (16:53)
[2025-01-17 17:18] VITALS: BP 135/63; PULSE 104; RESP 18; TEMP 98.7; O2SAT 96
--- NOTE | 2025-01-17 17:36 | ECG ---
[facility] Test Date: 2025-01-17 Test Time: 12:07:20 Pat Name: MAVERICK MAR Department: ED Room: Gender: F Him Analyst: ERNESTO : 1995 Requested By: GISELE PEREZ Order Number: [id number] Reading MD: Sebastián Pascual Measurements Intervals [place] Rate: 109 P: 6 FL: 120 QRS: 69 QRSD: 84 T: 12 QT: 335 QTc: 452 Interpretive Statements Sinus tachycardia Baseline wander in lead(s) II,III,aVF Electronically Signed On 01-19-2025 20:59:16 PDT by Sebastián Pascual Please click the below link to view image of tracing.
== END 2025-01-17 17:19 | disposition home or self-care (01) ==
LOC: ER 11:46
DX: F41.9 Anxiety disorder, unspecified (principal); N39.0 Urinary tract infection, site not specified
CPT/HCPCS: 93005; 99283; Q0162

== ENCOUNTER 2025-06-03 18:44 | Emergency (ER) | payer MEDICAID ==
[~2025-06-03] VITALS: Ht 157.5 cm; Wt 58.8 kg
[~2025-06-03 18:44] MED LIST changes: +ACET-1304 PO; +CEPH500C PO; +HYDR50TA32 PO; +ZOFR4T PO
[2025-06-03] MEDS: ALBUTEROL SULF 2.5 MG/0.5ML(0.5%) NEB SOLN NEB ONE (19:17)
--- NOTE | 2025-06-03 19:19 | ED.PDOC ---
HPI Allergic reaction HPI Comments 29-year-old female who came to ER for shortness a breath. Patient states 2 days ago, she was stung by a bee on her left lower leg. Patient was apparently fine, until this morning, when she noted pain and swelling of the left lower leg, mor localized at the bite site, with localized rashes. Patient would then develop shortness a breath, chest tightness, and throat swelling. Patient's self- medicated with Benadryl but offered no relief Chief Complaint: Shortness of Breath Time Seen by MD: 19:18 Primary Care Provider: UNKNOWN Reviewed Notes: Nurses Notes Allergies: Coded Allergies: NO KNOWN ALLERGIES (Unverified , 10/13/10) Home Meds Active Scripts Albuterol Sulfate (Albuterol Sulfate Hfa) 108 Mcg/Act Aer, 108 MCG IN Q6HP PRN, #1 AER Prov:DRISS RAHMAN MD 06/03/25 Diphenhydramine Hcl (Benadryl Allergy) 25 Mg Cap, 1 CAP PO Q6HP PRN, #30 CAP 1 Refill Prov:DRISS RAHMAN MD 06/03/25 Prednisone (Prednisone) 20 Mg Tab, 20 MG PO BID for 5 Days, MG Prov:DRISS RAHMAN MD 06/03/25 Acetaminophen (Tylenol Extra Strength) 500 Mg Tab, 1000 MG PO Q6HP PRN, #30 TAB prn pain Prov:GISELE KLEIN MD 01/17/25 Hydroxyzine HCl (Hydroxyzine Hydrochloride) 50 Mg Tab, 50 MG PO Q6HP PRN, #30 T AB prn anxiety Prov:GISELE KLEIN MD 01/17/25 Ondansetron Odt 4MG Tab (ZOFRAN PO) 4 Mg Tb, 4 MG PO TID PRN, #30 TAB prn nausea/vomiting ODT TAB-DISSOLVE IN MOUTH, THEN SWALLOW Prov:GISELE KLEIN MD 01/17/25 Cephalexin Monohydrate (Cephalexin) 500 Mg Cap, 1 CAP PO QID for 10 Days, #40 CAP Prov:GISELE KLEIN MD 01/17/25 Ciprofloxacin Hcl (Cipro) 500 Mg Tab, 1 TAB PO BID, #14 TAB Prov:JULIANNE GREENE MD 01/16/25 Cefdinir (Cefdinir) 300 Mg Cap, 1 CAP PO BID for 5 Days, #14 CAP Prov:MEME GARCIA MD 07/01/24 Reported Medications Vit W/ Ferrous Fumara ( One Daily) Daily Tab, 1 TAB PO DAILY, #90 TAB 3 Refills 04/26/24 Information Source: Patient Mode of Arrival: Ambulatory Severity: Moderate Rash: Moderate SOB: Moderate Difficulty swallowing: Moderate Pruritus: Mild Timing: Hours Duration: Since onset Prehospital treatment: Treatment (Benadryl) Location: Chest, Leg, Throat Exposed to: Animal (Bee) Developed: Difficult Swallowing, Rash, Shortness of Breath, Throat Swelliing Modyifying Factors: Diphenhydramine Past Medical History PAST MEDICAL HISTORY: Denies Surgical History: Denies all surgeries GAMBRELER History: No Pertinent GAMBRELER History Family History Family History: Reviewed,noncontributory to illness, Family hx of DM, Family hx of Cancer Social History Smoker: Non-Smoker Alcohol: Occasionally Drugs: Denies Drug Use Lives In: Home Constitutional: denies: chills, diaphoresis, fatigue, fever, malaise, sweats, weakness, others EENTM: reports: throat swelling; denies: blurred vision, double vision, ear bleeding, ear discharge, ear drainage, ear pain, ear ringing, eye pain, eye redness, hearing loss, mouth pain, mouth swelling, nasal discharge, nose bleeding, nose congestion, nose pain, photophobia, tearing, throat pain, voice changes, others Respiratory: reports: shortness of breath; denies: cough, hemoptysis, orthopnea, SOB at rest, SOB with excertion, stridor, wheezing, others Cardiovascular: reports: chest pain; denies: dizzy spells, diaphoresis, Dyspnea on exertion, edema, irregular heart beat, left arm pain, lightheadedness, palpitations, PND, syncope, others Gastrointestinal: denies: abdomen distended, abdominal pain, blood streaked bowels, constipated, diarrhea, dysphagia, difficulty swallowing, hematemesis, melena, nausea, poor appetite, poor fluid intake, rectal bleeding, rectal pain, vomiting, others Genitourinary: denies: abnormal vagina bleeding, burning, dyspareunia, dysuria, flank pain, frequency, hematuria, incontinence, pain, , vagina discharge, urgency, others Neurological: denies: dizziness, fainting, headache, left sided numbness, left sided weakness, numbness, paresthesia, pre-existing deficit, right sided numbnes s, right sided weakness, seizure, speech problems, tingling, tremors, weakness, others Musculoskeletal: reports: muscle pain (Left lower leg); denies: back pain, gout, joint pain, joint swelling, muscle stiffness, neck pain, others Integumetry: denies: bruises, change in color, change in hair/nails, dryness, laceration, lesions, lumps, rash, wounds, others Allergic/Immunocompromised: denies: Difficulty Healing, Frequent Infections, Hives, Itching, others Hematologic/Lymphatic: denies: anemia, blood clots, easy bleeding, easy bruising, swollen glands, others Endocrine: denies: excessive hunger, excessive sweating, excessive thirst, excessive urination, flushing, intolerance to cold, intolerance to heat, unexplained weight gain, unexplained weight loss, others Psychiatric: denies: anxiety, bipolar disorder, depression, hopeless, panic disorder, schizophrenia, sleepless, suicidal, others Physical Exam General Appearance: No Apparent Distress, Normal HEENT: Normal ENT Inspection, Pharynx Normal, TMs Normal Neck: Full Range of Motion, Non-Tender, Normal, Normal Inspection Respiratory: Chest Non-Tender, Lungs Clear, No Accessory Muscle Use, No Respiratory Distress, Normal Breath Sounds Cardiovascular: No Edema, No JVD, No Murmur, No Gallop, Normal Peripheral Pulses, Regular Rate/Rhythm Breast Exam: Deferred Gastrointestinal: No Organomegaly, Non Tender, No Pulsatile Mass, Normal Bowel Sounds, Soft Genitalia: Deferred Pelvic: Deferred Rectal: Deferred Extremities: No calf tenderness, Normal capillary refill, Normal inspection, Normal range of motion, Non-tender, No pedal edema Musculoskeletal : Apperance: Normal Neurologic: Alert, sales order processor II-XII nml as Tested, No Motor Deficits, Normal Affect, Normal Mood, No Sensory Deficits Cerebellar Function: Normal Reflexes: Normal Skin: Dry, Normal Color, Warm Lymphatic: No Adenopathy Was a procedure done? Was a procedure done?: No Differential diagnosis (all) Differential Diagnosis: Anaphylaxis, Bronchospasm, Urticaria X-Ray, Labs, Meds, VS Vital Signs Date Time Temp Pulse Resp B/P (MAP) Pulse Ox O2 Delivery O2 Flow Rate FiO2 06/03/25 23:10 98.1 98 14 113/58 (76) 98 98.1 06/03/25 20:11 105 19 99 Room Air* 0 21 06/03/25 20:10 98.6 105 19 100/62 (75) 99 98.6 06/03/25 19:18 18 100 Room Air* 0 21 06/03/25 18:57 105 06/03/25 18:46 97.9 127 20 105/76 97 97.9 Lab Test 06/03/25 19:27 Range/Units White Blood Count 8.8 4.4-10.8 10^3/uL Red Blood Count 4.94 4.0-5.20 10^6/uL Hemoglobin 10.4 L 12.2-16.2 g/dL Hematocrit 32.7 L 36.0-46.0 % Mean Corpuscular Volume 66.3 L 80.0-100.0 fL Mean Corpuscular Hemoglobin 21.1 L 28.0-32.0 pg Mean Corpuscular Hemoglobin Concent 31.8 L 32.0-36.0 g/dL Red Cell Distribution Width 19.5 H 11.8-14.3 % Platelet Count 506 H 140-450 10^3/uL Mean Platelet Volume 8.4 6.9-10.8 fL Neutrophils (%) (Auto) 61.3 37.0-80.0 % Lymphocytes (%) (Auto) 29.4 10.0-50.0 % Monocytes (%) (Auto) 6.7 0.0-12.0 % Eosinophils (%) (Auto) 2.5 0.0-7.0 % Basophils (%) (Auto) 0.1 0.0-2.0 % Neutrophils # (Auto) 5.4 1.6-8.6 10 ^3/uL Lymphocytes # (Auto) 2.6 0.4-5.4 10 ^3/uL Monocytes # (Auto) 0.6 0-1.3 10 ^3/uL Eosinophils # (Auto) 0.2 0-0.8 10 ^3/uL Basophils # (Auto) 0 0-0.2 10 ^3/uL Nucleated Red Blood Cells 0.1 % Sodium Level 137 136-145 mmol/L Potassium Level 4.1 3.5-5.1 mmol/L Chloride Level 102 98-107 mmol/L Carbon Dioxide Level 20 20-31 mmol/L Anion Gap 15 5-15 Blood Urea Nitrogen 8 L 9-23 mg/dL Creatinine 0.85 0.550-1.02 mg/dL Glomerular Filtration Rate Calc 95 >90 mL/min BUN/Creatinine Ratio 9.4 L 10.0-20.0 Serum Glucose 101 74-106 mg/dL Calcium Level 9.7 8.7-10.4 mg/dL Magnesium Level 2.1 1.6-2.6 mg/dL Total Bilirubin 0.4 0.2-1.0 mg/dL Aspartate Amino Transferase (AST) 19 13-40 U/L Alanine Aminotransferase (ALT) 15 7-40 U/L Alkaline Phosphatase 116 46-116 U/L Total Protein 8.9 H 5.7-8.2 g/dL Albumin 5.2 H 3.2-4.8 g/dL Current Medications Medications (Trade) Dose Ordered Sig/Marisela Route Start Time Stop Time Status Last Admin Diphenhydramine HCl (Benadryl Capsule) 25 mg ONCE ONCE PO 06/03/25 19:00 06/03/25 19:01 DC 06/03/25 20:06 Albuterol (Ventolin Medneb) 2.5 mg ONCE ONCE NEB 06/03/25 19:00 06/03/25 19:01 DC 06/03/25 19:17 Dexamethasone (Decadron Tablet) 8 mg ONCE ONCE PO 06/03/25 19:15 06/03/25 19:16 DC 06/03/25 20:06 CHEST RADIOGRAPH Indication: SOB Technique: Single frontal view of the chest was obtained Comparison: None FINDINGS: Lines and Tubes: None Lungs: No focal consolidation. Pleura: No effusion. No pneumothorax. Cardiomediastinal contours: Unremarkable Bones: No acute osseous abnormality. IMPRESSION: No acute cardiopulmonary disease. Time of 1ST Reevaluation: 19:15 Reevaluation 1ST: Unchanged Patient Education/Counseling: Diagnosis, Treatment Family Education/Counseling: No Family Present SEPSIS Sepsis Screen Date sepsis recognized/suspect: Jun 03, 2025 Time Sepsis recognized/suspect: 1849 Recent Procedure: No On Antibiotic Therapy: No Respiratory Rate >20: No Heart Rate >90: Yes Temp<36 C (96.8 F) or >38.3 C: No SBP <90 or MAP <65 mmHG: No New Acute Mental Status Change: No Is the patient on CPAP, BIPAP,: No Physician Orders Chest Xray 1 View (06/03/25 18:56) Vital Signs Date Time Temp Pulse Resp B/P (MAP) Pulse Ox O2 Delivery O2 Flow Rate FiO2 06/03/25 23:10 98.1 98 14 113/58 (76) 98 98.1 06/03/25 20:11 105 19 99 Room Air* 0 21 06/03/25 20:10 98.6 105 19 100/62 (75) 99 98.6 06/03/25 19:18 18 100 Room Air* 0 21 06/03/25 18:57 105 06/03/25 18:46 97.9 127 20 105/76 97 97.9 Laboratory Tests Test 06/03/25 19:27 White Blood Count 8.8 10^3/uL (4.4-10.8) Medications Medications Dose Ordered Sig/Marisela Route Start Time Stop Time Status Last Admin Dose Admin Albuterol 2.5 mg ONCE ONCE NEB 06/03/25 19:00 06/03/25 19:01 DC 06/03/25 19:17 Dexamethasone 8 mg ONCE ONCE PO 06/03/25 19:15 06/03/25 19:16 DC 06/03/25 20:06 Diphenhydramine HCl 25 mg ONCE ONCE PO 06/03/25 19:00 06/03/25 19:01 DC 06/03/25 20:06 Departure 1 Departure Time of Disposition: 21:00 Impression: Primary Impression: Bee sting Additional Impression: Allergic reaction Disposition: HOME / SELF CARE / HOMELESS Condition: Stable e-Prescriptions Albuterol Sulfate (Albuterol Sulfate Hfa) 108 Mcg/Act Aer 108 MCG IN Q6HP PRN, #1 AER Prov: DRISS RAHMAN MD 06/03/25 Diphenhydramine Hcl (Benadryl Allergy) 25 Mg Cap 1 CAP PO Q6HP PRN, #30 CAP 1 Refill Prov: DRISS RAHMAN MD 06/03/25 Prednisone (Prednisone) 20 Mg Tab 20 MG PO BID for 5 Days, MG Prov: DRISS RAHMAN MD 06/03/25 Discharged With: Self Critical Care Note Critical Care Time?: No Stability Stability form required: No Heart Score Heart Score: Heart Score Response (Comments) Value History N/A 0 EKG N/A 0 Age N/A 0 Risk Factors N/A 0 Troponin N/A 0 Total 0 I personally scribed for DRISS RAHMAN MD ([email or web address]) on 06/03/25 at 19:19. Electronically submitted by Bobo Howard ([facility]). I personally scribed for DRISS RAHMAN MD ([email or web address]) on 06/03/25 at 19:41. Electronically submitted by Bobo Howard ([facility]). DRISS RAHMAN MD Jun 03, 2025 19:19
--- NOTE | 2025-06-03 19:32 | DVH ---
CHEST RADIOGRAPH Indication: SOB Technique: Single frontal view of the chest was obtained Comparison: None FINDINGS: Lines and Tubes: None Lungs: No focal consolidation. Pleura: No effusion. No pneumothorax. Cardiomediastinal contours: Unremarkable Bones: No acute osseous abnormality. IMPRESSION: No acute cardiopulmonary disease.
[2025-06-03 20:11] VITALS: PULSE 105; RESP 19; O2SAT 99
[2025-06-03 20:11] LABS: Hematocrit 32.7 % (36.0-46.0); Hemoglobin 10.4 g/dL (12.2-16.2); Mean Corpuscular Hemoglobin 21.1 pg (28.0-32.0); Mean Corpuscular Volume 66.3 fL (80.0-100.0); Nucleated Red Blood Cells % 0.1 %
[2025-06-03 20:30] LABS: Alanine Aminotransferase 15 U/L (7-40); Anion Gap 15 (5-15); BUN/Creatinine Ratio 9.4 (10.0-20.0); Calcium 9.7 mg/dL (8.7-10.4); Chloride 102 mmol/L (98-107); Glucose 101 mg/dL (74-106); Magnesium 2.1 mg/dL (1.6-2.6); Potassium 4.1 mmol/L (3.5-5.1); Sodium 137 mmol/L (136-145)
[2025-06-03 20:31] LABS: Albumin 5.2 g/dL (3.2-4.8); Alkaline Phosphatase 116 U/L (46-116); Bilirubin, Total 0.4 mg/dL (0.2-1.0); Blood Urea Nitrogen 8 mg/dL (9-23); Carbon Dioxide 20 mmol/L (20-31); Total Protein 8.9 g/dL (5.7-8.2)
[2025-06-03] MEDS ORDERED: ALBU108A5 IN (20:55)
[2025-06-03] MEDS ORDERED: DIPH25CA66 PO (20:55)
[2025-06-03] MEDS ORDERED: PRED20TA2 PO (20:55)
--- NOTE | 2025-06-03 21:12 | ECG ---
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
[2025-06-03 23:10] VITALS: BP 113/58; PULSE 98; RESP 14; TEMP 98.1; O2SAT 98
== END 2025-06-03 23:17 | disposition home or self-care (01) ==
LOC: ER 18:44
DX: T63.441A Toxic effect of venom of bees, accidental (unintentional), initial encounter (principal); Y92.89 Other specified places as the place of occurrence of the external cause
CPT/HCPCS: 36415; 71045; 80053; 83735; 85025; 93005; 94640; 99285; J8540